=== PATIENT | male | born 1985 | race Caucasian/White ===

== ENCOUNTER 2017-03-04 11:17 | Emergency (ER) | payer OTHER ==
[~2017-03-04] VITALS: Ht 182.9 cm; Wt 90.7 kg
[2017-03-04] MEDS ORDERED: LEVAQUIN750 MG PO (14:43)
== END 2017-03-04 14:50 | disposition home or self-care (01) ==
LOC: ER 11:17
DX: S51.822A Laceration with foreign body of left forearm, initial encounter (principal); W25.XXXA Contact with sharp glass, initial encounter; Y93.89 Activity, other specified; Y92.69 Other specified industrial and construction area as the place of occurrence of the external cause; Y99.8 Other external cause status